=== PATIENT | female | born 1940 | race Caucasian/White ===

== ENCOUNTER 2016-12-10 13:42 | Day surgery (SDC) | payer OTHER ==
[2016-12-10] MEDS ORDERED: NS 500 ML IV 500 ML IV ONE (13:44)
[2016-12-10] MEDS ORDERED: TETRACAINE 0.5% OPHTH 1 DOSE AFFEYE ONE ×6 (13:51→17:02)
[2016-12-10] MEDS ORDERED: VIGAMOX 0.5% OPHTH 1 DOSE AFFEYE ONE ×5 (13:52→17:22)
[2016-12-10] MEDS ORDERED: PROLENSA OPHTH 1 DOSE AFFEYE ONE (14:03)
[2016-12-10] MEDS ORDERED: ALPHAGAN-P OPHTH 1 DOSE AFFEYE ONE (14:04)
[2016-12-10] MEDS ORDERED: AK-DILATE 2.5% OPHTH 1 DOSE OP ONE ×4 (14:05→14:08)
[2016-12-10] MEDS ORDERED: MYDRIACIL OPHTH 1 DOSE AFFEYE ONE ×4 (14:05→14:08)
[2016-12-10] MEDS ORDERED: CYCLOGYL 1% OPHTH 1 DOSE OP ONE ×4 (14:05→14:08)
[2016-12-10] MEDS ORDERED: DIPRIVAN VIAL ONE (15:48)
[2016-12-10] MEDS: VERSED ONE ×2 (16:25→16:40)
[2016-12-10] MEDS ORDERED: BETADINE OPHTH SOLN 5% EACHEYE ONE ×2 (16:52)
[2016-12-10] MEDS ORDERED: DUOVISC IO ONE ×2 (16:55→17:02)
[2016-12-10] MEDS ORDERED: XYLOCAINE-MPF 1% IJ ONE ×2 (16:55→17:02)
[2016-12-10] MEDS ORDERED: BSS OPHTH (PLAIN) 500 ML with VANCOMYCIN HCL 500 MG VIAL 25 MG, ADRENALINE CHL INJ 1 MG IR ONE ×6 (16:55)
[2016-12-10] MEDS ORDERED: ADRENALINE CHL INJ IJ ONE ×2 (16:55→17:02)
[2016-12-10 17:50] VITALS: BP 177/90
== END 2016-12-10 17:50 | disposition home or self-care (01) ==
LOC: SURG1 13:42
PROVIDERS: ATTEND Ophthalmology
PROC: 08RK3JZ Replacement of Left Lens with Synthetic Substitute, Percutaneous Approach (ICD-10-PCS; principal; 2016-12-10 04:45)
PROC: 08DK3ZZ Extraction of Left Lens, Percutaneous Approach (ICD-10-PCS; principal; 2016-12-10 04:45)
DX: H25.12 Age-related nuclear cataract, left eye (principal); H25.012 Cortical age-related cataract, left eye; H52.222 Regular astigmatism, left eye
CPT/HCPCS: J0170; J2250; J3370; J3490